=== PATIENT | male | born 1965 | race Caucasian/White ===

== ENCOUNTER 2016-10-10 13:52 | Emergency (ER) | payer OTHER ==
[2016-10-10 14:06] VITALS: BP 147/82
--- NOTE | 2016-10-10 14:41 | EDM.PDOC ---
ED HPI GENERAL MEDICAL PROBLEM - General Chief Complaint: ENT Problem Stated Complaint: INFECTED TOOTH Time Seen by Provider: 10/10/16 14:08 Source of Information: Reports: Patient History Limitations: Reports: No Limitations - History of Present Illness INITIAL COMMENTS - FREE TEXT/NARRATIVE: 51 yo male presents with lower left dental pain. pain started 4 days ago and progressively worsening. He is vacationing here from [place] and has established dental care. Pain in lower jaw and radiates into left ear. Denies fever, headache, or sore throat. Left Lower Tooth/Teeth Pain Score (Numeric/FACES): 10 - Related Data Allergies Allergy/AdvReac Type Severity Reaction Status Date / Time myicins Allergy Hives Uncoded 10/10/16 14:06 Home Meds: Home Meds Glimepiride [Amaryl] 1 mg PO DAILY 10/10/16 [History] Lisinopril 5 mg PO DAILY 10/10/16 [History] Metoprolol Tartrate 25 mg PO BID 10/10/16 [History] Rosuvastatin [Crestor] 20 mg PO BEDTIME 10/10/16 [History] buPROPion [Wellbutrin] 100 mg PO DAILY 10/10/16 [History] metFORMIN [Glucophage] 1,000 mg PO BIDMEALS 10/10/16 [History] Past Medical History HEENT History: Reports: Impaired Vision - Infectious Disease History Infectious Disease History: Reports: Chicken Pox - Past Surgical History Cardiovascular Surgical History: Reports: Coronary Artery Bypass Musculoskeletal Surgical History: Reports: Knee Replacement Social & Family History - Tobacco Use Smoking Status *Q: Current Some Day Smoker Years of Tobacco use: 20 Packs/Tins Daily: 0.5 - Caffeine Use Caffeine Use: Reports: Coffee, Soda - Recreational Drug Use Recreational Drug Use: No ED ROS ENT - Review of Systems Review Of Systems: See Below Constitutional: Denies: Fever, Chills HEENT: Reports: Dental Pain, Rhinitis (seasonal allergies) Respiratory: Denies: Shortness of Breath, Wheezing Cardiovascular: Denies: Chest Pain ED EXAM, ENT - Physical Exam Exam: See Below Exam Limited By: No Limitations General Appearance: Alert, WD/WN, No Apparent Distress Ears: Normal External Exam, Normal Canal, Hearing Grossly Normal, Normal TMs Nose: Normal Inspection, Normal Mucousa Mouth/Throat: Dental Pain (tooth 18 broke with deep kervin, surrounding gum edema) , Dental Tenderness Head: Atraumatic, Normocephalic Neck: Normal Inspection, Supple, Non-Tender, Full Range of Motion. No: Lymphadenopathy (R), Lymphadenopathy (L) Respiratory/Chest: No Respiratory Distress Course - Vital Signs Last Recorded V/S: Last Vital Signs Temp 36.3 C 10/10/16 14:05 Pulse 95 10/10/16 14:05 Resp 17 10/10/16 14:05 BP 147/82 H 10/10/16 14:05 Pulse Ox 97 10/10/16 14:05 Departure - Departure Time of Disposition: 14:41 Disposition: Home, Self-Care 01 Condition: Good Clinical Impression: Dental caries, Dental abscess - Discharge Information Instructions: Dental Caries Referrals: PCP,None [Primary Care Provider] - Forms: ED Department Discharge Additional Instructions: Amoxicillin 500 mg twice daily for 10 days Aleve 1-2 tablets twice daily for pain the fix will come at the dentist this will return if not fixed
== END 2016-10-10 15:12 | disposition home or self-care (01) ==
LOC: JP.ED 13:52
DX: K02.9 Dental caries, unspecified (principal); K04.7 Periapical abscess without sinus; F17.210 Nicotine dependence, cigarettes, uncomplicated; Z96.659 Presence of unspecified artificial knee joint; Z95.1 Presence of aortocoronary bypass graft; Z79.84 Long term (current) use of oral hypoglycemic drugs; Z79.899 Other long term (current) drug therapy; Z88.8 Allergy status to other drugs, medicaments and biological substances
CPT/HCPCS: 99283